=== PATIENT | female | born 1985 | race Hispanic/Latino ===

== ENCOUNTER 2024-02-28 04:55 | Inpatient (IN) | payer MEDICAID, SELFPAY ==
[2024-02-28] MEDS ORDERED: Midazolam HCl 2 mg/2 ml Vial ONE (05:31)
[2024-02-28] MEDS ORDERED: fentaNYL 50 mcg/mL 1 mL Vial ONE (05:31)
[2024-02-28] MEDS ORDERED: Aspirin Chewable 81 MG TAB ONE (06:23)
[2024-02-28 07:18] VITALS: BMI 28.9
[2024-02-28] MEDS: Sodium Chloride 0.9% 1,000 ML IV SCH (07:21)
[2024-02-28] MEDS ORDERED: Ondansetron PF 4 MG/2 ML Vial IVP PRN (07:42)
[2024-02-28] MEDS ORDERED: Calcium Carbonate 500 MG ChewTAB PO PRN (07:42)
[2024-02-28] MEDS ORDERED: Ondansetron ODT 4 MG TAB PO PRN (07:42)
[2024-02-28] MEDS ORDERED: Ipratropium/Albuterol 3 ML NEB NEB PRN (07:44)
[2024-02-28] MEDS: Morphine 4 MG/ML VIAL SLOW IVP PRN (07:50)
[2024-02-28] MEDS: Morphine 4 MG/ML VIAL ONE (08:49)
[2024-02-28] MEDS: Acetaminophen 325 MG TAB PO PRN (08:49)
[2024-02-28] MEDS ORDERED: Morphine 2 MG/ML VIAL SLOW IVP PRN (09:00)
[2024-02-28] MEDS: Nitroglycerin 50 MG/250 ML BOT 250 ML IVPB SCH (09:20)
[2024-02-28] MEDS: Nitroglycerin 50 MG/250 ML BOT 250 ML ONE (09:23)
[2024-02-28] MEDS: Morphine 2 MG/ML VIAL SLOW IVP PRN (09:56)
[2024-02-28] MEDS: Clopidogrel Bisulfate 300 MG TAB PO SCH (09:59)
[2024-02-28] MEDS: niCARdipine 25 MG in Sodium Chloride 0.9% 250 ML 250 ML IVPB SCH (11:59)
[2024-02-28] MEDS ORDERED: Iopamidol 370 76% 100 ML VIAL ONE (12:44)
[2024-02-28] MEDS ORDERED: Magnesium Sulfate 1 GM, Admixture Fee 1 EACH in Sodium Chloride 0.9% 100 ML IV SCH (14:15)
[2024-02-28] MEDS: Labetalol HCl 100 MG/20 ML VIAL SLOW IVP SCH (14:21)
[2024-02-28 14:32] LABS: Bacteria/HPF None Seen HPF (None Seen); Bilirubin Negative (Negative); Blood, Urine 3+ (Negative); CAUTI Indications for Culture Pelvic or flank pain; Clarity Clear (Clear); Glucose, Urine (Dipstick) Normal (Negative); Ketone, Urine Negative (Negative); Leukocyte Negative Leu/uL (Negative); Nitrite Negative (Negative); Protein, Urine (Dipstick) Negative (Neg-Trace); Specific Gravity, Urine 1.023 (1.002-1.036); Squamous Epithelial 0-3 HPF (0-3); Urine Culture Reflex No No; Urobilinogen Normal mg/dL (Less than 2); WBC/HPF 0-3 HPF (0-3)
[2024-02-28 14:47] LABS: Magnesium 2.7 mg/dL (1.6-2.6)
[2024-02-28] MEDS: Magnesium Sulfate In Water 4 GM in Premix 1 BAG IVPB SCH (15:24)
[2024-02-28 20:39] LABS: Critical Call Chem Troponin I RESULT DECREASING
[2024-02-28 21:53] LABS: Magnesium 2.3 mg/dL (1.6-2.6)
[2024-02-29 00:18] LABS: HBCM Index 0.08 S/CO (0-0.79); HBsAg Index 0.48 S/CO (0-0.99); Hep A IgM AB NONREACTIVE (NonReactive); Hep A IgM S/CO 0.38 S/CO (0-0.79); Hep B Surf Ag NONREACTIVE S/CO (NonReactive); Hep C IgG Ab NONREACTIVE S/CO (NonReactive); Hep C Index 0.17 S/CO (0-0.79); Hepatitis B Core IgM Abs NONREACTIVE S/CO (NonReactive)
[2024-02-29 04:02] LABS: #Basophils Less than 0.03 10x3/uL (0.0-0.2); %Basophils 0.2 % (0.0-1.0); %Eosinophils 5.8 % (0.0-10.0); %Neutrophils 59.6 % (42.0-75.0); Hematocrit 38.3 % (36.0-47.0); Hemoglobin 12.5 g/dL (12.0-16.0); Mean Corpuscular HGB CONC 32.6 g/dL (32.0-36.0); Mean Corpuscular Hemoglobin 27.2 pg (27.0-31.0); Mean Corpuscular Volume 83.3 fL (78.0-98.0); Mean Platelet Volume 11.3 fL (7.4-10.4); Platelet Count 223 10x3/uL (130-400); RBC Distribution Width 14.7 % (11.5-14.5)
[2024-02-29 04:46] LABS: Hemoglobin A1c 4.9 % (4.0-6.0)
[2024-02-29 04:52] LABS: ALT (SGPT) 57 U/L (8-55); AST (SGOT) 146 U/L (5-34); Albumin 3.1 g/dL (3.5-5.0); Alkaline Phosphatase 89 U/L (40-110); Anion Gap 15 mmol/L (10-20); BUN (Urea Nitrogen) 8 mg/dL (7.0-18.7); Bilirubin, Total 0.5 mg/dL (0.2-1.2); CK (CPK) 937 U/L (29-168); Calc. Creatinine Clearance 138 mL/min (70-130); Calcium 8.1 mg/dL (7.8-10.44); Carbon Dioxide 18 mmol/L (22-29); Cardiac Risk 5.8 (Less than 4.5); Chloride 109 mmol/L (98-107); Cholesterol 193 mg/dl (< 200 Desired); Estimated GFR 117; Globulin 3.1 g/dL (2.4-3.5); Glucose 109 mg/dL (70-105); HDL Cholesterol 33 mg/dL (>60 Neg Risk); LDL Cholesterol, Calculated 107 mg/dL; Potassium 3.6 mmol/L (3.5-5.1); Protein, Total 6.2 g/dL (6.0-8.3); Sodium 138 mmol/L (136-145); Triglycerides 264 mg/dL (Less than 150)
[2024-02-29] MEDS: Aspirin 81 mg Enteric Coated Tablet PO SCH (09:03)
[2024-02-29] MEDS: Clopidogrel Bisulfate 75 MG TAB PO SCH (09:04)
[2024-02-29] MEDS: Lactated Ringer's 1,000 ML IV SCH (09:45)
[2024-02-29 11:34] LABS: Critical Call Chem Troponin I LOW
[2024-03-01 04:52] LABS: Anion Gap 16 mmol/L (10-20); BUN (Urea Nitrogen) 10 mg/dL (7.0-18.7); Calc. Creatinine Clearance 148 mL/min (70-130); Calcium 8.4 mg/dL (7.8-10.44); Carbon Dioxide 21 mmol/L (22-29); Chloride 107 mmol/L (98-107); Estimated GFR 116; Glucose 97 mg/dL (70-105); Magnesium 1.8 mg/dL (1.6-2.6); Potassium 3.8 mmol/L (3.5-5.1); Sodium 140 mmol/L (136-145)
[2024-03-01 10:46] LABS: #Basophils Less than 0.03 10x3/uL (0.0-0.2); %Eosinophils 7.2 % (0.0-10.0); %Lymphocytes 27.7 % (21.0-51.0); %Monocytes 6.7 % (0.0-10.0); %Neutrophils 58.4 % (42.0-75.0); Hemoglobin 12.4 g/dL (12.0-16.0); Mean Corpuscular HGB CONC 32.6 g/dL (32.0-36.0); Mean Corpuscular Hemoglobin 27.5 pg (27.0-31.0); Mean Corpuscular Volume 84.3 fL (78.0-98.0); Mean Platelet Volume 10.8 fL (7.4-10.4); Platelet Count 241 10x3/uL (130-400); RBC Distribution Width 14.3 % (11.5-14.5); Red Blood Cell (RBC) Count 4.51 mill/uL (4.20-5.40)
[2024-03-01 12:27] LABS: ANA Symphony (Qualitative) Negative (Negative); ANA Symphony (Quantitative) 0.2 Ratio (< 0.7 Negative); dsDNA IgG Antibody 3.2 IU/mL (<10 Negative)
[2024-03-01] MEDS: Atorvastatin Calcium 40 MG TAB PO SCH (20:10)
[2024-03-02 05:37] LABS: #Basophils Less than 0.03 10x3/uL (0.0-0.2); %Basophils 0.2 % (0.0-1.0); %Eosinophils 9.5 % (0.0-10.0); %Lymphocytes 35.7 % (21.0-51.0); %Monocytes 7.3 % (0.0-10.0); %Neutrophils 47.3 % (42.0-75.0); Hematocrit 37.2 % (36.0-47.0); Hemoglobin 12.2 g/dL (12.0-16.0); Mean Corpuscular HGB CONC 32.8 g/dL (32.0-36.0); Mean Corpuscular Hemoglobin 26.8 pg (27.0-31.0); Mean Corpuscular Volume 81.8 fL (78.0-98.0); Mean Platelet Volume 11.3 fL (7.4-10.4); Platelet Count 231 10x3/uL (130-400); RBC Distribution Width 14.1 % (11.5-14.5); Red Blood Cell (RBC) Count 4.55 mill/uL (4.20-5.40)
[2024-03-02 06:22] LABS: ALT (SGPT) 38 U/L (8-55); AST (SGOT) 50 U/L (5-34); Albumin 3.1 g/dL (3.5-5.0); Alkaline Phosphatase 82 U/L (40-110); Anion Gap 13 mmol/L (10-20); BUN (Urea Nitrogen) 11 mg/dL (7.0-18.7); Bilirubin, Total 0.5 mg/dL (0.2-1.2); CK (CPK) 180 U/L (29-168); Calc. Creatinine Clearance 135 mL/min (70-130); Calcium 8.7 mg/dL (7.8-10.44); Carbon Dioxide 23 mmol/L (22-29); Chloride 108 mmol/L (98-107); Estimated GFR 116; Globulin 3.2 g/dL (2.4-3.5); Glucose 98 mg/dL (70-105); Potassium 3.7 mmol/L (3.5-5.1); Protein, Total 6.3 g/dL (6.0-8.3); Sodium 140 mmol/L (136-145)
[2024-03-02] MEDS: Senokot S 8.6-50 MG TAB PO PRN (10:00)
[2024-03-02 12:28] VITALS: BP 115/79; TEMP 98.3
[2024-03-02] MEDS: Ondansetron PF 4 MG/2 ML Vial IVP SCH (12:32)
== END 2024-03-02 17:53 | disposition home or self-care (01) | DRG 776 ==
LOC: ERS 04:55 → CCU 06:47 → 2SW 03-01 18:05
PROVIDERS: ADMIT Internal Medicine; ATTEND Internal Medicine
PROC: 4A023N7 Measurement of Cardiac Sampling and Pressure, Left Heart, Percutaneous Approach (ICD-10-PCS; principal; 2024-02-28)
PROC: B2111ZZ Fluoroscopy of Multiple Coronary Arteries using Low Osmolar Contrast (ICD-10-PCS; 2024-02-28)
PROC: B2151ZZ Fluoroscopy of Left Heart using Low Osmolar Contrast (ICD-10-PCS; 2024-02-28)
DX: O99.43 Diseases of the circulatory system complicating the puerperium (principal); I25.42 Coronary artery dissection; I51.81 Takotsubo syndrome; I10 Essential (primary) hypertension; I25.10 Atherosclerotic heart disease of native coronary artery without angina pectoris; E78.5 Hyperlipidemia, unspecified; E11.9 Type 2 diabetes mellitus without complications; I16.0 Hypertensive urgency; K76.1 Chronic passive congestion of liver; O26.63 Liver and biliary tract disorders in the puerperium
CPT/HCPCS: 36415; 80048; 80053; 80061; 80074; 81001; 82550; 83036; 83735; 83880; 84484; 85025; 85347; 86038; 86225; 93005; 93010; 93306; 93458; 93798; 99152; 99153; C1769; C1887; C1894; J2250; J2270; J2272; J2405; J3010; J7050; J7120; Q9967